=== PATIENT | male | born 1955 | race Caucasian/White ===

== ENCOUNTER → 2017-07-31 | Outpatient (CLI) | payer OTHER ==
--- NOTE | 2017-07-31 09:46 | MR ---
MR abdomen with and without contrast HISTORY: R 93.2 Multiplanar multisequence and postcontrast images obtained through the liver following 10 cc Gadavist IV. Correlation to prior ultrasound of the abdomen dated 07/26/2017 from outside institution Small low signal foci are present within the gallbladder compatible with small gallstones, towards th e fundus focus of intermediate signal could represent a small polyp or adherent stone.. There is no e vident dilation of the intra or extrahepatic biliary ducts. The left lobe of the liver shows a multil ocular cystic focus measuring 2.1 cm x 1.4 cm x 1.7 cm with increased signal on T2-weighted sequences , low signal on T1-weighted sequences. Similar appearing cystic focus is present in the right lobe to wards the dome measuring only 5 mm. Additional cystic focus is present adjacent to the gallbladder wi thin the left lobe measuring 1.1 x 0.9 x 1.2 cm. Mild signal drop on out of phase imaging within the liver could be indicative of underlying hepatic steatosis, liver is at the upper limit of normal for size. Spleen is normal in size. The adrenal glands, pancreas, aorta are normal. There is no retroperitoneal adenopathy or ascites. No evident pleural effusion. No abnormal enhancement following contrast admin istration. The kidneys excrete contrast normally. No evident renal mass. IMPRESSION: Liver cysts. Cholelithiasis is suspected, small gallbladder polyp is thought present towa rds the fundus, follow-up. Hepatic steatosis.
== END | disposition home or self-care (01) ==
LOC: RADMRIMAIN 05:55
PROVIDERS: ATTEND Internal Medicine
DX: K76.89 Other specified diseases of liver (principal); K82.4 Cholesterolosis of gallbladder; K76.0 Fatty (change of) liver, not elsewhere classified
CPT/HCPCS: 74183; A9581

== ENCOUNTER → 2018-07-21 | Outpatient (CLI) | payer OTHER ==
--- NOTE | 2018-07-21 20:04 | US ---
EXAMINATION TYPE: US carotid duplex BILAT DATE OF EXAM: 07/21/2018 COMPARISON: NONE CLINICAL HISTORY: I35.8 Aortic valve disorders I65.23 Occlusion and.. EXAM MEASUREMENTS: RIGHT: Peak Systolic Velocity (PSV) cm/sec ----- Right CCA: 95.7 ----- Right ICA: 100.4 ----- Right ECA: 100.4 ICA/CCA ratio: 1.0 RIGHT: End Diastole cm/sec ----- Right CCA: 24.6 ----- Right ICA: 40.4 ----- Right ECA: 18.3 LEFT: Peak Systolic Velocity (PSV) cm/sec ----- Left CCA: 94.7 ----- Left ICA: 107.0 ----- Left ECA: 151.0 ICA/CCA ratio: 1.1 LEFT: End Diastole cm/sec ----- Left CCA: 17.1 ----- Left ICA: 44.8 ----- Left ECA: 28.8 VERTEBRALS (direction of flow): Right Vertebral: Antegrade Left Vertebral: Antegrade Rhythm: Normal Minimal amount of plaque visualized, elevated velocity visualized in the left ECA. Grayscale, color Doppler, spectral Doppler imaging performed of the carotid arteries. Waveform analys is does not show significant stenosis of the proximal internal carotid arteries. IMPRESSION: No hemodynamic significant stenosis of the proximal internal carotid arteries bilaterall y by Doppler criteria, an indirect measurement of carotid stenosis
--- NOTE | 2018-07-21 20:47 | ECHOF ---
Referral Reason:I35.8 Aortic valve disorders I65.23 Occlusion and. MEASUREMENTS -------- HEIGHT: 162.6 cm WEIGHT: 98.0 kg BP: RVIDd: 2.8 cm (< 3.3) IVSd: 1.2 cm (0.6 - 1.1) LVIDd: 4.4 cm (3.9 - 5.3) LVPWd: 1.3 cm (0.6 - 1.1) IVSs: 1.5 cm LVIDs: 2.7 cm LVPWs: 1.5 cm LA Diam: 3.5 cm (2.7 - 3.8) Ao Diam: 2.7 cm (2.0 - 3.7) AV Cusp: 2.0 cm (1.5 - 2.6) LA Diam: 3.9 cm (2.7 - 3.8) MV EXCURSION: 17.007 mm (> 18.000) MV EF SLOPE: 72 mm/s (70 - 150) EPSS: 0.6 cm MV E Oscar: 0.47 m/s MV DecT: 277 ms MV A Oscar: 0.89 m/s MV E/A Ratio: 0.53 RAP: 5.00 mmHg RVSP: 23.73 mmHg FINDINGS -------- Sinus rhythm. This was a technically good study. LV size, wall thickness and systolic function are normal, with an EF greater than 55%. The left fernando tricular size is normal. The right ventricle is normal in size. The left atrial size is normal. The right atrial size is normal. The aortic valve is trileaflet, and appears structurally normal. No aortic stenosis or regurgitation. Mild mitral regurgitation is present. Mild tricuspid regurgitation present. There is no evidence of pulmonary hypertension. The right v entricular systolic pressure, as measured by Doppler, is 23.73mmHg. There is no pulmonic regurgitation present. The aortic root size is normal. There is no pericardial effusion. CONCLUSIONS -------- 1. LV size, wall thickness and systolic function are normal, with an EF greater than 55%. 2. The left ventricular size is normal. 3. The right ventricle is normal in size. 4. The left atrial size is normal. 5. The right atrial size is normal. 6. The aortic valve is trileaflet, and appears structurally normal. No aortic stenosis or regurgitati on. 7. Mild mitral regurgitation is present. 8. Mild tricuspid regurgitation present. 9. There is no evidence of pulmonary hypertension. 10. The right ventricular systolic pressure, as measured by Doppler, is 23.73mmHg. 11. There is no pulmonic regurgitation present. 12. The aortic root size is normal. 13. There is no pericardial effusion. [employer]SEM[employer]ER: Jodie Escobedo RDCS
== END ==
LOC: RADECHMAIN 14:39
PROVIDERS: ATTEND Internal Medicine
DX: I08.1 Rheumatic disorders of both mitral and tricuspid valves (principal); I65.23 Occlusion and stenosis of bilateral carotid arteries
CPT/HCPCS: 93306; 93880